=== PATIENT | female | born 1990 | race Caucasian/White ===

== ENCOUNTER → 2021-01-19 17:15 | Observation (INO) ==
[2021-01-19 16:46] LABS: Bacteria,Urine Few per hpf (None-Few); Bilirubin,Urine Negative (Negative); Blood,Urine Negative (Negative); Clarity,Urine Clear (Clear); Color,Urine Light-Yellow (Yellow); Glucose,Urine (UA) Normal (Normal); Ketones,Urine Negative (Negative); Leukocyte Esterase,Urine Large (Negative); Mucus,Urine Few per lpf (None-Few); Nitrite,Urine Negative (Negative); PH,Urine 6.5 pH Units (5.0-8.0); Protein,Urine Trace mg/dL (Neg-Trace); Specific Gravity,Urine 1.019 (1.010-1.025); Squamous Epithelial Cell,Urine Few per hpf (None-Few); Urobilinogen,Urine Normal (Normal)
== END | disposition home or self-care (01) ==
LOC: 1NENULAB
PROVIDERS: ADMIT Obstetrics & Gynecology; ATTEND Obstetrics & Gynecology

== ENCOUNTER 2021-02-03 05:20 | Inpatient (IN) ==
[2021-02-03] MEDS ORDERED: Metoclopramide 10 MG/2 ML VIAL IVP ONE (05:29)
[2021-02-03] MEDS ORDERED: Ringers Solution, Lactated 1,000 ML IVC ONE (05:29)
[2021-02-03] MEDS ORDERED: Famotidine 20 MG/2 ML VIAL IVP ONE (05:29)
[2021-02-03] MEDS ORDERED: FLU Vac QV 21-22 (6Month+)/PF 0.5 ML SYRINGE IM ONE (05:56)
[2021-02-03 06:04] LABS: Basophils # 0.1 K/mcL (0.0-0.2); Basophils % 0.4 %; Eosinophils # 0.1 K/mcL (0.0-0.6); Eosinophils % 0.8 %; Hematocrit 33.2 % (35.3-44.9); Hemoglobin 10.8 g/dL (11.5-15.4); Immature Granulocytes % 2.3 % (0-4); Lymphocytes # 1.8 K/mcL (0.6-4.6); Lymphocytes % 12.9 %; Mean Corpuscular HGB Conc 32.5 g/dL (31.6-35.5); Mean Corpuscular Hemoglobin 27.1 pg (28.0-33.3); Mean Corpuscular Volume 83.2 fL (83.0-100.0); Mean Platelet Volume 10.8 fL (9.4-12.4); Monocytes # 1.1 K/mcL (0.0-1.3); Monocytes % 7.7 %; Neutrophils # 10.3 K/mcL (1.6-8.9); Platelet Count 277 K/mcL (140-400); Red Blood Count 3.99 M/mcL (3.82-4.97); Red Cell Distribution Width 14.9 % (11.5-14.5); Segmented Neutrophils % 75.9 %; White Blood Count 13.6 K/mcL (4.3-11.1)
[2021-02-03] MEDS ORDERED: Clindamycin 900 MG/50 ML 900 MG/50 ML IV.SOLN IVPB ONE (06:38)
[2021-02-03 06:41] LABS: Influenza A PCR Negative (Negative); Influenza B PCR Negative (Negative); Resp. Syncytial Virus PCR Positive (Negative)
[2021-02-03] MEDS ORDERED: Ondansetron 4 MG/2 ML VIAL ONE (06:49)
[2021-02-03] MEDS ORDERED: Acetaminophen IV 1,000 MG/100 ML BAG IVPB ONE (06:49)
[2021-02-03] MEDS ORDERED: Ketorolac 30 MG/ML VIAL ONE (06:49)
[2021-02-03] MEDS ORDERED: EPHEDrine 50 MG/ML VIAL ONE (06:49)
[2021-02-03 06:50] LABS: SARS-CoV-2 by PCR (In House) Negative (Negative)
[2021-02-03] MEDS ORDERED: Gentamicin 300 MG in 0.9 % Sodium Chloride 100 ML IVPB ONE (06:50)
[2021-02-03] MEDS ORDERED: Ringers Solution, Lactated 1,000 ML ONE (06:53)
[2021-02-03] MEDS ORDERED: *HR* Morphine Sulfate/PF 10 MG/10 ML AMPUL ONE (07:21)
[2021-02-03] MEDS ORDERED: *HR* FentaNYL (PF) 100 MCG/2 ML VIAL ONE (07:21)
[2021-02-03] MEDS ORDERED: Ondansetron 4 MG/2 ML VIAL IVP PRN ×2 (08:09→11:00)
[2021-02-03] MEDS ORDERED: *HR* OxyCODONE Immed Rel 5 MG TABLET PO PRN (08:09)
[2021-02-03] MEDS ORDERED: *HR* FentaNYL (PF) 100 MCG/2 ML VIAL IVP PRN (08:09)
[2021-02-03] MEDS ORDERED: Promethazine 6.25 MG in Water for inj. (sterile) 20 ML IVPB PRN (08:09)
[2021-02-03] MEDS ORDERED: Naloxone 0.4 MG/ML INJ IVP PRN (08:09)
[2021-02-03] MEDS ORDERED: Rho Immune Globulin 1,500 UNIT SYRINGE IM ONE (11:00)
[2021-02-03] MEDS ORDERED: Metoclopramide 10 MG/2 ML VIAL IVP PRN (11:00)
[2021-02-03] MEDS ORDERED: Ringers Solution, Lactated 1,000 ML IVC SCH (11:00)
[2021-02-03] MEDS ORDERED: Oxytocin 20 units/ LR 1000 mL 20 UNIT/1,000 ML BAG IVC SCH (11:00)
[2021-02-03 12:16] LABS: Amphetamine Screen,Urine Negative ng/mL (Cutoff=1000); Barbiturate Screen,Urine Negative ng/mL (Cutoff=200); Benzodiazepines Screen,Urine Negative ng/mL (Cutoff=200); Cannabinoid Screen,Urine Negative ng/mL (Cutoff = 50); Cocaine Screen,Urine Negative ng/mL (Cutoff= 300); Opiate Screen,Urine Negative ng/mL (Cutoff=300); Phencyclidine Screen,Urine Negative ng/mL (Cutoff=25)
[2021-02-03] MEDS: Ibuprofen 600 MG TABLET PO SCH ×3 (12:21→23:39)
[2021-02-03] MEDS ORDERED: Famotidine 20 MG TABLET PO ONE (15:00)
[2021-02-03] MEDS: Acetaminophen 325 MG TABLET PO SCH ×2 (15:02→21:08)
[2021-02-04] MEDS: Acetaminophen 325 MG TABLET PO SCH ×2 (03:44→10:13)
[2021-02-04 05:47] LABS: Hematocrit 35.8 % (35.3-44.9); Hemoglobin 12.1 g/dL (11.5-15.4); Mean Corpuscular HGB Conc 33.8 g/dL (31.6-35.5); Mean Corpuscular Hemoglobin 31.3 pg (28.0-33.3); Mean Platelet Volume 9.5 fL (9.4-12.4); Platelet Count 235 K/mcL (140-400); Red Blood Count 3.87 M/mcL (3.82-4.97); Red Cell Distribution Width 12.5 % (11.5-14.5); Segmented Neutrophils % 74.8 %; White Blood Count 11.2 K/mcL (4.3-11.1)
[2021-02-04 05:48] LABS: Basophils % 0.2 %; Eosinophils % 0.2 %; Immature Granulocytes % 0.5 % (0-4); Lymphocytes # 1.6 K/mcL (0.6-4.6); Lymphocytes % 13.9 %; Monocytes # 1.2 K/mcL (0.0-1.3); Monocytes % 10.4 %; Neutrophils # 8.4 K/mcL (1.6-8.9)
[2021-02-04 05:50] LABS: Mean Corpuscular Volume 92.5 fL (83.0-100.0)
[2021-02-04] MEDS: Ibuprofen 600 MG TABLET PO SCH ×3 (06:29→20:42)
[2021-02-04 06:38] VITALS: O2SAT 97
[2021-02-04 07:39] VITALS: BP 92/58; PULSE 80; TEMP 98.3
[2021-02-04] MEDS: Prenatal Vit/FA 1 EACH TABLET PO SCH (08:33)
[2021-02-04] MEDS: Simethicone 80 MG TAB.CHEW PO PRN ×2 (08:33→20:41)
[2021-02-04] MEDS ORDERED: NON-FORMULARY MEDICATION 1 EACH EACH (Prenatal Vitamin Tablet 1 TAB) PO SCH (09:00)
[2021-02-04] MEDS: *HR* OxyCODONE Immed Rel 5 MG TABLET PO PRN ×3 (10:13→20:42)
[2021-02-05] MEDS: Acetaminophen 325 MG TABLET PO SCH ×2 (01:43→07:49)
[2021-02-05] MEDS: Ibuprofen 600 MG TABLET PO SCH ×2 (01:43→07:49)
[2021-02-05] MEDS: *HR* OxyCODONE Immed Rel 5 MG TABLET PO PRN ×2 (01:44→07:48)
[2021-02-05] MEDS: Prenatal Vit/FA 1 EACH TABLET PO SCH (07:48)
[2021-02-05] MEDS: Simethicone 80 MG TAB.CHEW PO PRN (11:40)
== END 2021-02-05 12:45 | disposition home or self-care (01) | DRG 788 ==
LOC: 1NENULAB 05:20 → 1NENUOBS 11:00
PROVIDERS: ADMIT Student in an Organized Health Care Education/Training Program; ATTEND Student in an Organized Health Care Education/Training Program